=== PATIENT | female | born 1995 | race African-American/Black ===

== ENCOUNTER 2018-12-27 08:34 | Emergency (ER) | payer SELFPAY ==
--- NOTE | 2018-12-27 09:58 | ER Document Report ---
ED Medical Screen (RME) - General Chief Complaint: Pelvic Pain Stated Complaint: PELVIC PAIN Time Seen by Provider: 12/27/18 09:54 Mode of Arrival: Ambulatory Information source: Patient Notes: 23-year-old female presented to ED for complaint of pelvic pain. She states she started her period yesterday last menstrual period before that was November 30. She states she usually cramps on the first day of her period but she has had pelvic pain for the last 4 days. She states it is worse than the normal cramping that she has with her cycle. She is still having pelvic pain but no other symptoms. She is alert oriented respirations regular and unlabored speaking in full sentences walks with even steady gait. She states she does not smoke drink or do any drugs she works at a [employer] has a history of asthma and had an abdominal surgery when she was a baby due to throwing up. She states she lives with her girlfriend. I have greeted and performed a rapid initial assessment of this patient. A comprehensive ED assessment and evaluation of the patient, analysis of test results and completion of medical decision making process will be conducted by an additional ED providers. Dictation of this chart was performed using voice recognition software; therefore, there may be some unintended grammatical errors. TRAVEL OUTSIDE OF THE [place] IN LAST 30 DAYS: No - Related Data Allergies/Adverse Reactions: No Known Allergies Allergy (Verified 12/27/18 08:36) Past Medical History - Social History Chew tobacco use (# tins/day): No Drug Abuse: None Renal/ Medical History: Denies: Hx Peritoneal Dialysis Past Surgical History: Reports: Hx Abdominal Surgery - at age of 4, GERD correction. Physical Exam - Vital signs Vitals: Temp Pulse Resp BP Pulse Ox 98.3 F 105 H 22 H 135/76 H 92 12/27/18 08:40 12/27/18 08:40 12/27/18 08:40 12/27/18 08:40 12/27/18 08:40 Course - Vital Signs Vital signs: Temp Pulse Resp BP Pulse Ox 98.3 F 105 H 22 H 135/76 H 92 12/27/18 08:40 12/27/18 08:40 12/27/18 08:40 12/27/18 08:40 12/27/18 08:40
[2018-12-27 10:20] LABS: ABSOLUTE EOSINOPHILS # (AUTO) 0.7 10^3/uL (0.0-0.6); ABSOLUTE MONOCYTES (AUTO) 0.4 10^3/uL (0.1-1.4); BASOPHILS % (AUTO) 0.7 % (0-2); HEMATOCRIT 38.7 % (36.0-47.0); HEMOGLOBIN 12.6 g/dL (12.0-15.5); LYMPHOCYTES % (AUTO) 32.9 % (13-45); MEAN CORPUSCULAR HEMOGLOBIN 27.2 pg (27.0-33.4); MEAN CORPUSCULAR HGB CONC 32.5 g/dL (32.0-36.0); MEAN CORPUSCULAR VOLUME 84 fl (80-97); MONOCYTES % (AUTO) 6.3 % (3-13); PLATELET COUNT 365 10^3/uL (150-450); RED BLOOD COUNT 4.61 10^6/uL (3.72-5.28); RED CELL DISTRIBUTION WIDTH 16.3 % (11.5-14.0); SEGMENTED NEUTROPHILS % (AUTO) 48.1 % (42-78); TOTAL CELLS COUNTED % (AUTO) 100 %; WHITE BLOOD COUNT 6.2 10^3/uL (4.0-10.5)
[2018-12-27 10:33] LABS: APPEARANCE,URINE HAZY; BILIRUBIN,URINE MODERATE (NEGATIVE); COLOR,URINE YELLOW; GLUCOSE, URINE NEGATIVE (NEGATIVE); KETONES,URINE NEGATIVE (NEGATIVE); LEUKOCYTE ESTERASE,URINE NEGATIVE (NEGATIVE); NITRITE,URINE NEGATIVE (NEGATIVE); PROTEIN,URINE 100 mg/dL (NEGATIVE); URINE SPECIFIC GRAVITY 1.034
[2018-12-27 10:44] LABS: ALANINE AMINOTRANSFERASE 16 U/L (9-52); ALBUMIN 4.5 g/dL (3.5-5.0); ALKALINE PHOSPHATASE 71 U/L (38-126); ANION GAP 10 (5-19); ASPARTATE AMINO TRANSFERASE 26 U/L (14-36); BILIRUBIN,DIRECT 0.2 mg/dL (0.0-0.4); BILIRUBIN,TOTAL 0.5 mg/dL (0.2-1.3); BLOOD UREA NITROGEN 6 mg/dL (7-20); CALCIUM 9.4 mg/dL (8.4-10.2); CARBON DIOXIDE 25 mmol/L (22-30); CHLORIDE 106 mmol/L (98-107); GLUCOSE 91 mg/dL (75-110); SODIUM 141.3 mmol/L (137-145); TOTAL PROTEIN 7.7 g/dL (6.3-8.2)
--- NOTE | 2018-12-27 12:05 | RADIOLOGY REPORT (SQ) ---
EXAM DESCRIPTION: U/S NON-OB PELVIS TV W/O DOP COMPLETED DATE/TIME: 12/27/2018 11:12 am REASON FOR STUDY: pelvic pain COMPARISON: None. TECHNIQUE: Dynamic and static grayscale images acquired of the pelvis via transvaginal approach and recorded on PACS. Additional selected color Doppler and spectral images recorded. LIMITATIONS: None. FINDINGS: UTERUS: Contour normal. No mass. ENDOMETRIAL STRIPE: No focal or generalized thickening. No masses. CERVIX: No nabothian cysts. RIGHT OVARY AND DOPPLER: Normal size. No worrisome masses. Normal arterial vascular flow without evid ence for torsion. LEFT OVARY AND DOPPLER: Normal size. No worrisome masses. Normal arterial vascular flow without evide nce for torsion. FREE FLUID: None noted. OTHER: No other significant finding. MEASUREMENTS: UTERUS: 8.2 cm ENDOMETRIAL STRIPE: 4.9 mm RIGHT OVARY: 3.3 cm LEFT OVARY: 4.2 cm IMPRESSION: NORMAL TRANSVAGINAL PELVIC ULTRASOUND. TECHNICAL DOCUMENTATION: JOB ID: [id number] [employer]- All Rights Reserved Reading location - IP/workstation name: [email or web address]
[2018-12-27] MEDS ORDERED: KETOROLAC TROMETHAMINE 60 MG/2 ML SDV IM ONE (12:14)
[2018-12-27] MEDS ORDERED: ALBUTEROL SULFATE HFA (90 MCG/PUFF) 8 GM MDI (1 MDI/ER DISP) IH ONE (12:15)
--- NOTE | 2018-12-27 13:34 | ER Document Report ---
ED General - General Chief Complaint: Pelvic Pain Stated Complaint: PELVIC PAIN Time Seen by Provider: 12/27/18 09:54 Primary Care Provider: ABI ALEX MD [Primary Care Provider] - Follow up as needed Mode of Arrival: Ambulatory TRAVEL OUTSIDE OF THE [place] IN LAST 30 DAYS: No - HPI Notes: Patient is a 23-year-old female who presents to the emergency department for evaluation. Her initial complaint is for pelvic pain. States is been going on for the last 3 days. She states it feels like cramping but stronger than normal. She did start her period a few days early. She is sexually active, denies any history of STDs. She does see a unishear operator regularly. Has regular pelvic exams. She is had no vaginal discharge, no vaginal lesions. She denies any dysuria, hematuria, urinary frequency. Patient also states she feels short of breath. She has a history of asthma. She states that her allergies seem to exacerbate her asthma. She is not currently on any histamines. She ran out of her albuterol inhaler last night. No fevers or chills. No chest pain. - Related Data Allergies/Adverse Reactions: No Known Allergies Allergy (Verified 12/27/18 08:36) Past Medical History - General Information source: Patient - Social History Smoking Status: Never Smoker Chew tobacco use (# tins/day): No Drug Abuse: None Family History: Reviewed & Not Pertinent Patient has suicidal ideation: No Patient has homicidal ideation: No Renal/ Medical History: Denies: Hx Peritoneal Dialysis Past Surgical History: Reports: Hx Abdominal Surgery - at age of 4, GERD correction. Review of Systems - Review of Systems Constitutional: No symptoms reported EENT: No symptoms reported Cardiovascular: No symptoms reported Respiratory: See HPI Gastrointestinal: No symptoms reported Genitourinary: No symptoms reported Female Genitourinary: No symptoms reported Musculoskeletal: No symptoms reported Skin: No symptoms reported Neurological/Psychological: No symptoms reported Physical Exam - Vital signs Vitals: Temp Pulse Resp BP Pulse Ox 98.3 F 105 H 22 H 135/76 H 92 12/27/18 08:40 12/27/18 08:40 12/27/18 08:40 12/27/18 08:40 12/27/18 08:40 - Notes Notes: Vital signs reviewed, please refer to chart. Head is normocephalic, atraumatic. Pupils equal round, reactive to light. Neck is supple without meningismus. Heart is regular rate and rhythm. Lungs are clear to auscultation bilaterally. Abdomen is soft, nontender, normoactive bowel sounds throughout. Extremities without cyanosis, clubbing. Posterior calves are nontender. Peripheral pulses are equal. Skin is warm and dry. Patient is awake, alert, neurological exam is nonfocal. Course - Re-evaluation Re-evalutation: 12/27/18 13:31 Patient presents emergency department for evaluation. Laboratory investigations and imaging is ordered through triage. These failed to reveal any significant abnormality. She does have some blood in her urine, but this is secondary to menstruation. She has no urinary symptoms. She gets regular pelvic exams and has no real discharge. Her ultrasound was normal. She was given an dose of her albuterol inhaler here. I will go ahead and send her home with that as well. I will also write a prescription strength antihistamine. She is advised that this might help her control her asthma better. She states that during "allergy season" her asthma is always worsened. She is not currently wheezing, I do not see any indication for steroids at this time. We will have her follow-up with primary care and gynecology. She is to return to the ED with worsening or new concerning symptoms of any sort. - Vital Signs Vital signs: Temp Pulse Resp BP Pulse Ox 98.8 F 97 28 H 106/72 100 12/27/18 11:50 12/27/18 11:50 12/27/18 11:50 12/27/18 11:50 12/27/18 11:50 - Laboratory Result Diagrams: 12/27/18 10:10 12/27/18 10:10 Laboratory results interpreted by me: 12/27/18 12/27/18 12/27/18 10:10 10:10 10:10 RDW 16.3 H Eosinophils % 12.0 H Absolute Eosinophils 0.7 H BUN 6 L Urine Protein 100 H Urine Blood LARGE H Urine Bilirubin MODERATE H Urine Urobilinogen 2.0 H - Diagnostic Test Radiology reviewed: Reports reviewed Radiology results interpreted by me: 12/27/18 13:32 Transvaginal US 12/27/18 09:55 IMPRESSION: NORMAL TRANSVAGINAL PELVIC ULTRASOUND. Transvaginal US 12/27/18 09:55 IMPRESSION: NORMAL TRANSVAGINAL PELVIC ULTRASOUND. Discharge - Discharge Clinical Impression: Pelvic pain Asthma Qualifiers: Asthma severity: mild Asthma persistence: intermittent Asthma complication type: uncomplicated Qualified Code(s): J45.20 - Mild intermittent asthma, uncomplicated Condition: Stable Disposition: HOME, SELF-CARE Instructions: Asthma ([facility]), Pelvic Pain ([facility]) Additional Instructions: Start antihistamine as prescribed. Use albuterol inhaler at home as needed. Follow-up with your primary care physician as well as your unishear operator in the next week. Return to the emergency department with worsening or new concerning symptoms. Referrals: ABI ALEX MD [Primary Care Provider] - Follow up as needed
[2018-12-27 13:58] VITALS: BP 126/84
== END 2018-12-27 13:58 | disposition home or self-care (01) ==
LOC: ER 08:34
DX: R10.2 Pelvic and perineal pain (principal); J45.20 Mild intermittent asthma, uncomplicated; R06.02 Shortness of breath
CPT/HCPCS: 99284; 96372; 86900; 86901; 36415; 84703; 85025; 80053; 81001; 76830; J1885; J3490

== ENCOUNTER 2019-01-28 14:51 | Emergency (ER) | payer SELFPAY ==
[2019-01-28 14:55] VITALS: BP 111/75
--- NOTE | 2019-01-28 15:19 | ER Document Report ---
HPI - HPI Time Seen by Provider: 01/28/19 15:06 Pain Level: 1 Context: Patient is a 22-year-old female who presents the emergency department with a chief complaint of a cough and runny nose. Patient has a history of asthma and seasonal allergies. She states that she took a puff of her rescue inhaler and had some relief. Patient is supposed to be using cetirizine, Flonase, and Qvar, but has not been using them. She states that she does not have any of them and does not know the last time she was at her primary care provider. Denies any fever, body aches, chills, diarrhea, or any other symptoms. - CONSTITUTIONAL Constitutional: DENIES: Fever, Chills - EENT EENT: REPORTS: Nasal Drainage-Clear. DENIES: Sore Throat, Ear Pain, Nasal Drainage-Purulent, Congestion - NEURO Neurology: DENIES: Headache - RESPIRATORY Respiratory: REPORTS: Coughing - REPRODUCTIVE Reproductive: DENIES: : - DERM Skin Color: Normal Skin Problems: None Past Medical History - Social History Smoking Status: Never Smoker Chew tobacco use (# tins/day): No Frequency of alcohol use: None Drug Abuse: None Family History: Reviewed & Not Pertinent Patient has suicidal ideation: No Patient has homicidal ideation: No Pulmonary Medical History: Reports: Hx Asthma Renal/ Medical History: Denies: Hx Peritoneal Dialysis Past Surgical History: Reports: Hx Abdominal Surgery - at age of 4, GERD correction. Vertical Provider Document - CONSTITUTIONAL Agree With Documented VS: Yes Exam Limitations: No Limitations General Appearance: No Apparent Distress - INFECTION CONTROL TRAVEL OUTSIDE OF THE [place] IN LAST 30 DAYS: No - HEENT HEENT: Atraumatic - NECK Neck: Normal Inspection - RESPIRATORY Respiratory: Breath Sounds Normal, No Respiratory Distress - CARDIOVASCULAR Cardiovascular: Regular Rate, Regular Rhythm Pulses: Normal: Radial - MUSCULOSKELETAL/EXTREMETIES Musculoskeletal/Extremeties: FROM - NEURO Level of Consciousness: Awake, Alert, Appropriate - DERM Integumentary: Warm, Dry, No Rash Course - Re-evaluation Re-evalutation: 01/28/19 15:16 I have a very low suspicion for pneumonia or any life-threatening etiology at this time. She has not been on her medications. I will refill her cetirizine and albuterol inhaler. I will have her follow-up with her OB and primary care provider to have her Flonase and Qvar refilled. Patient will follow-up with her primary care provider in regards to this visit. Follow-up precautions were given. Verbal discharge instructions were given to the patient. They verbalized understanding. They are stable for discharge. - Vital Signs Vital signs: Temp Pulse Resp BP Pulse Ox 98 F 104 H 18 111/75 97 01/28/19 14:53 01/28/19 14:53 01/28/19 14:53 01/28/19 14:53 01/28/19 14:53 Discharge - Discharge Clinical Impression: Cough, History of asthma, History of seasonal allergies Condition: Stable Disposition: HOME, SELF-CARE Additional Instructions: You were seen today in the emergency department for a cough. Your cetirizine and rescue inhaler are being refilled. Please follow-up with your primary care provider tomorrow. Prescriptions: Albuterol Sulfate [Proair HFA Inhalation Aerosol 8.5 gm MDI] 2 puff IH Q4H PRN #1 mdi PRN Reason: Cetirizine HCl [All Day Allergy] 10 mg PO DAILY #30 tablet Referrals: ABI ALEX MD [Primary Care Provider] - Follow up tomorrow
== END 2019-01-28 15:23 | disposition home or self-care (01) ==
LOC: ER 14:51
DX: R05 Cough (principal); J45.909 Unspecified asthma, uncomplicated
CPT/HCPCS: 99283

== ENCOUNTER 2019-02-07 21:59 | Emergency (ER) | payer SELFPAY ==
[2019-02-07 22:16] VITALS: BP 125/82
== END 2019-02-07 23:20 | disposition left against medical advice (07) ==
LOC: ER 21:59
DX: Z53.21 Procedure and treatment not carried out due to patient leaving prior to being seen by health care provider (principal)

== ENCOUNTER 2019-02-10 07:30 | Emergency (ER) | payer MEDICAID ==
--- NOTE | 2019-02-10 08:20 | ER Document Report ---
HPI - HPI Patient complains to provider of: abdominal pain in Time Seen by Provider: 02/10/19 08:13 Onset/Duration: Gradual, Intermittent Quality of pain: Cramping Severity: Mild Pain Level: 2 Context: 23 yr old female patient, with the listed pmh, here for intermittent crampy lower abdominal pain x 28 days. She is , last menstrual period 12/26/2018. No complications in previous . She has her initial REVIEW APPRAISER appointment with [facility] in [place] in 4 days. She has not had a confirmed IUP in this . She states her pain is worse when she is standing at work all day and she needs a work note. No abdominal surgeries other than remote pyloromyotomy as a baby. No history of ovarian cysts, fibroids, endometriosis, or renal stones. Normal bowel movements. No UTI symptoms other than some intermittent frequency. No URI symptoms. No recent antibiotics or steroids. No history of diabetes or asthma. No vaginal discharge/complaints/bleeding/lesions or concerns for STDs and does not want a pelvic exam. Hasn't taken anything for her symptoms and does not want anything for them. No excessive NSAID use, Tylenol use, or EtOH. No prior history of gallbladder disease, pancreatitis, ulcers, GI bleed, GERD, IBS, Crohn's, or UC. no change in color or caliber or stool. no blood thinners. no fall or trauma. Pain is not worse with eating, movement, or deep breathing. No other associated sx. Exacerbated by: Standing Relieved by: Remaining still Similar symptoms previously: Yes Recently seen / treated by doctor: No - ROS Systems Reviewed and Negative: Yes All other systems reviewed and negative - To include 10 systems, unless mentioned in the hpi. - REPRODUCTIVE LMP: 12/26/18 Reproductive: REPORTS: : - DERM Skin Color: Normal Past Medical History - General Information source: Patient - Social History Smoking Status: Never Smoker Chew tobacco use (# tins/day): No Frequency of alcohol use: None Drug Abuse: None Family History: Reviewed & Not Pertinent Patient has suicidal ideation: No Patient has homicidal ideation: No Pulmonary Medical History: Reports: Hx Asthma Endocrine Medical History: Reports: None Renal/ Medical History: Denies: Hx Peritoneal Dialysis Past Surgical History: Reports: Hx Abdominal Surgery - pyloromyotomy as a baby- no complications since - Immunizations Immunizations up to date: Yes Vertical Provider Document - CONSTITUTIONAL Agree With Documented VS: Yes Exam Limitations: No Limitations General Appearance: No Apparent Distress Notes: >>>> PHYSICAL_EXAM: GENERAL_APPEARANCE: well_nourished, alert, cooperative, no_acute_distress, no_obvious_discomfort. Pleasant, young black female, smiling, speaking in full sentences, in no sign of pain or resp distress, easily sitting up, 7mth old in the room with her. she isn't breast feeding. VITALS: reviewed, see vital signs table. HEAD: normocephalic, atraumatic. no crooks signs. no raccoon eyes. EYES: PERRL, EOMI, (-)scleral icterus. NOSE: no_nasal_discharge. MOUTH: (-)decreased moisture. THROAT: no_tonsilar_inflammation/hypertrophy/exudate NECK: supple, no_neck_tenderness, full rom. full strength. no meningeal signs. BACK: no midline_back_tenderness. no step offs or deformities CHEST_WALL: no_chest_tenderness. LUNGS: no_wheezing, (-)accessory muscle use, good air exchange bilateral. HEART: normal_rate, normal_rhythm, ABDOMEN: normal_BS, soft, abdomen-diffuse, non-tender, uterus not palpated on exam, (-)guarding, (-)rebound, no distension or peritoneal signs. neg murphys. neg mcburneys. no cva tenderness. neg heel strike. neg obturator. neg psoas. neg rovsign. PELVIC: deferred by pt. RECTAL: deferred EXTREMITIES: strength 5/5 in all_extremities, good pulses in all_extremities, no_edema, no_swelling\tenderness. full rom. normal gait. 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 brisk cap refill. SKIN: warm, dry, good_color, no_rash. no grossly visible overlying skin changes to suggest trauma NEURO: motor_intact, sensory_intact. MENTAL_STATUS: normal_affect, speech_clear, oriented_X_3, responds_ appropriately to questions. - INFECTION CONTROL TRAVEL OUTSIDE OF THE [place] IN LAST 30 DAYS: No Course - Re-evaluation Re-evalutation: 02/10/19 08:19 pt here for intermittent lower abdominal cramping for the last month. She has not had a confirmed IUP. Last menstrual period was 12/26/2018. Labs were unremarkable other than a possible uti, since she is will tx with keflex. she is blood type A+. ucx, gc/chlam pending. advised will call with any abnormal results that require change in plan of care. she didn't want prophylactic gc/chlam tx. She denies any vaginal discharge or bleeding or concerns for STDs and did not want a pelvic exam. OB transvag US showed a living IUP at 7w 4d, with fht at 141bpm, and was otherwise neg for anything acute per rad and reviewed by myself. pt informed of her findings. She has no abdominal tenderness to palpation on exam. She is tolerating p.o. She is well-appearing. Advised to continue vitamins. Pelvic rest. No heavy lifting. Tylenol for any pain. f/u with the obgyn for further std testing and workup of her sx and repeat of quant level in 2 days. Advised to f/u with obgyn in 1-2 days. return for any worsening symptoms. vss. well appearing. satting well on ra. neurononfocal. pt understands and agrees to plan. On reexam, pt remained stable. nontoxic. well appearing. pain controlled. tolerating po. requesting to go home. serial abd exams remain benign Documentation achieved through voice recording which my lead to some occasional accidental typographical errors. Extensive efforts have been made to proof read documentation to make sure these are the least as possible. 02/10/19 09:48 Category Date Time Status U/S OB TRANSVAG W/DOPPLER [US] Stat Exams 02/10/19 08:23 Taken CBC WITH DIFF [HEME] Stat Lab 02/10/19 08:05 Completed CHLAM MARTI PCR URINE INHOUSE [MO] Stat Lab 02/10/19 09:15 Ordered COMPREHENSIVE METABOLIC PANEL [CHEM] Stat Lab 02/10/19 08:05 Completed HCG QUANTITATIVE [CHEM] Stat Lab 02/10/19 08:05 Completed LIPASE [CHEM] Stat Lab 02/10/19 08:05 Completed TYPE AND SCREEN [BBK] Stat Lab 02/10/19 08:35 Completed URINALYSIS [URIN] Stat Lab 02/10/19 08:35 Completed URINE CULTURE [MC] Stat Lab 02/10/19 08:35 Received 08/22/19 09:53 - Vital Signs Vital signs: Temp Pulse Resp BP Pulse Ox 97.9 F 89 18 128/58 H 98 02/10/19 07:33 02/10/19 07:33 02/10/19 07:33 02/10/19 07:33 02/10/19 07:33 Temp Pulse Resp BP Pulse Ox 02/10/19 11:52 98.7 F 85 16 118/71 100 02/10/19 07:33 97.9 F 89 18 128/58 H 98 - Laboratory Result Diagrams: 02/10/19 08:05 02/10/19 08:05 Laboratory results interpreted by me: Labs- Entire Visit 02/10/19 02/10/19 02/10/19 08:05 08:05 08:05 WBC 8.0 RBC 4.41 Hgb 12.3 Hct 37.2 MCV 84 MCH 27.9 MCHC 33.1 RDW 17.6 H Plt Count 463 H Lymph % (Auto) 25.6 Pepin % (Auto) 6.4 Eos % (Auto) 6.6 H Baso % (Auto) 0.7 Absolute Neuts (auto) 4.9 Absolute Lymphs (auto) 2.1 Absolute Monos (auto) 0.5 Absolute Eos (auto) 0.5 Absolute Basos (auto) 0.1 Seg Neutrophils % 60.7 Sodium 137.2 Potassium 3.7 Chloride 103 Carbon Dioxide 25 Anion Gap 9 BUN 5 L Creatinine 0.49 L Est GFR ( Amer) > 60 Est GFR (MDRD) Non-Af > 60 Glucose 71 L Calcium 9.7 Total Bilirubin 0.5 Direct Bilirubin 0.2 Neonat Total Bilirubin Not Reportable Neonat Direct Bilirubin Not Reportable Neonat Indirect Bili Not Reportable AST 19 ALT 12 Alkaline Phosphatase 65 Total Protein 7.0 Albumin 4.2 Lipase 70.6 Beta HCG, Quant 106281.00 H Total Beta HCG POSITIVE Urine Color Urine Appearance Urine pH Ur Specific [place] Urine Protein Urine Glucose (UA) Urine Ketones Urine Blood Urine Nitrite Urine Bilirubin Urine Urobilinogen Ur Leukocyte Esterase Urine WBC (Auto) Urine RBC (Auto) Urine Bacteria (Auto) Squamous Epi Cells Auto Urine Mucus (Auto) Urine Ascorbic Acid Chlamydia DNA (PCR) N.gonorrhoeae DNA (PCR) Blood Type Antibody Screen 02/10/19 02/10/1919 08:35 08:35 09:40 WBC RBC Hgb Hct MCV MCH MCHC RDW Plt Count Lymph % (Auto) Pepin % (Auto) Eos % (Auto) Baso % (Auto) Absolute Neuts (auto) Absolute Lymphs (auto) Absolute Monos (auto) Absolute Eos (auto) Absolute Basos (auto) Seg Neutrophils % Sodium Potassium Chloride Carbon Dioxide Anion Gap BUN Creatinine Est GFR ( Amer) Est GFR (MDRD) Non-Af Glucose Calcium Total Bilirubin Direct Bilirubin Neonat Total Bilirubin Neonat Direct Bilirubin Neonat Indirect Bili AST ALT Alkaline Phosphatase Total Protein Albumin Lipase Beta HCG, Quant Total Beta HCG Urine Color YELLOW Urine Appearance CLOUDY Urine pH 6.0 Ur Specific [place] 1.021 Urine Protein 30 H Urine Glucose (UA) NEGATIVE Urine Ketones NEGATIVE Urine Blood NEGATIVE Urine Nitrite NEGATIVE Urine Bilirubin NEGATIVE Urine Urobilinogen 4.0 H Ur Leukocyte Esterase LARGE H Urine WBC (Auto) 10 Urine RBC (Auto) 3 Urine Bacteria (Auto) 2+ Squamous Epi Cells Auto 32 Urine Mucus (Auto) MANY Urine Ascorbic Acid NEGATIVE Chlamydia DNA (PCR) NOT DETECTED N.gonorrhoeae DNA (PCR) NOT DETECTED Blood Type A POSITIVE Antibody Screen NEGATIVE - Diagnostic Test Radiology reviewed: Image reviewed, Reports reviewed Radiology results interpreted by me: Transvaginal US 02/10/19 08:23 IMPRESSION: LIVING INTRAUTERINE . EGA 7 weeks 4 days Trimester of : First trimester - 0 to 13 weeks. Discharge - Discharge Clinical Impression: Threatened Abdominal pain during Qualifiers: Trimester: first trimester Qualified Code(s): O26.891 - Other specified related conditions, first trimester; R10.9 - Unspecified abdominal pain UTI (urinary tract infection) Qualifiers: Urinary tract infection type: acute cystitis Hematuria presence: without hematuria Qualified Code(s): N30.00 - Acute cystitis without hematuria Condition: Good Disposition: HOME, SELF-CARE Instructions: Cephalexin ([facility]), Threatened Abortions ( Patients), Urin edyta Tract Infection ([facility]) Additional Instructions: Follow-up with obgyn in 1 to 2 days. Return for any worsening symptoms. take the medication as prescribed. We will call you with any abnormal results that require change in plan of care. Drink plenty of fluids. vitamins. Pelvic rest. No heavy lifting. Tylenol as needed for any pain. Follow-up with your REVIEW APPRAISER in 2 days for repeat hormone level as discussed and further work-up. Prescriptions: Cephalexin Monohydrate [Keflex 500 mg Capsule] 500 mg PO BID 7 Days #14 capsule Forms: Return to Work Referrals: HARJINDER HARDY MD [Primary Care Provider] - Follow up tomorrow
[2019-02-10 08:36] LABS: ABSOLUTE BASOPHILS # (AUTO) 0.1 10^3/uL (0.0-0.2); ABSOLUTE EOSINOPHILS # (AUTO) 0.5 10^3/uL (0.0-0.6); ABSOLUTE LYMPHOCYTES (AUTO) 2.1 10^3/uL (0.5-4.7); ABSOLUTE MONOCYTES (AUTO) 0.5 10^3/uL (0.1-1.4); ABSOLUTE NEUT (AUTO) 4.9 10^3/uL (1.7-8.2); BASOPHILS % (AUTO) 0.7 % (0-2); EOSINOPHILS % (AUTO) 6.6 % (0-6); HEMATOCRIT 37.2 % (36.0-47.0); HEMOGLOBIN 12.3 g/dL (12.0-15.5); LYMPHOCYTES % (AUTO) 25.6 % (13-45); MEAN CORPUSCULAR HEMOGLOBIN 27.9 pg (27.0-33.4); MEAN CORPUSCULAR HGB CONC 33.1 g/dL (32.0-36.0); MEAN CORPUSCULAR VOLUME 84 fl (80-97); MONOCYTES % (AUTO) 6.4 % (3-13); PLATELET COUNT 463 10^3/uL (150-450); RED BLOOD COUNT 4.41 10^6/uL (3.72-5.28); RED CELL DISTRIBUTION WIDTH 17.6 % (11.5-14.0); SEGMENTED NEUTROPHILS % (AUTO) 60.7 % (42-78); TOTAL CELLS COUNTED % (AUTO) 100 %
[2019-02-10 08:40] LABS: ALBUMIN 4.2 g/dL (3.5-5.0); ALKALINE PHOSPHATASE 65 U/L (38-126); ANION GAP 9 (5-19); ASPARTATE AMINO TRANSFERASE 19 U/L (14-36); BILIRUBIN,DIRECT 0.2 mg/dL (0.0-0.4); BILIRUBIN,TOTAL 0.5 mg/dL (0.2-1.3); BLOOD UREA NITROGEN 5 mg/dL (7-20); CALCIUM 9.7 mg/dL (8.4-10.2); CARBON DIOXIDE 25 mmol/L (22-30); CHLORIDE 103 mmol/L (98-107); GLUCOSE 71 mg/dL (75-110); POTASSIUM 3.7 mmol/L (3.6-5.0)
[2019-02-10 08:56] LABS: APPEARANCE,URINE CLOUDY; BILIRUBIN,URINE NEGATIVE (NEGATIVE); GLUCOSE, URINE NEGATIVE (NEGATIVE); KETONES,URINE NEGATIVE (NEGATIVE); LEUKOCYTE ESTERASE,URINE LARGE (NEGATIVE); NITRITE,URINE NEGATIVE (NEGATIVE); PROTEIN,URINE 30 mg/dL (NEGATIVE); URINE SPECIFIC GRAVITY 1.021
[2019-02-10 08:57] LABS: COLOR,URINE YELLOW
--- NOTE | 2019-02-10 10:47 | RADIOLOGY REPORT (SQ) ---
EXAM DESCRIPTION: U/S OB TRANSVAG W/DOPPLER COMPLETED DATE/TIME: 02/10/2019 10:18 am REASON FOR STUDY: abd pain in preg COMPARISON: None. TECHNIQUE: Transvaginal static and realtime grayscale images acquired of the pelvis. Additional iraida cted spectral and color Doppler images recorded. All images stored on PACs. [facility] CLINICAL DATES: 6 weeks 4 days LIMITATIONS: None. FINDINGS: FETUS: Single Living intrauterine . ULTRASOUND EGA: 7 weeks 4 days ULTRASOUND ALEX: 09/25/2019 EFW: Not applicable less than 20 weeks. CRL: 1.3 cm FHR: 141 beats per minute. SURVEY: Too early to assess. AMNIOTIC FLUID: Adequate amount. PLACENTA: Not yet developed due to early gestation. SUBCHORIONIC BLEED: No SIZE OF BLEED: Not applicable. UTERUS: No masses. No anomalies. CERVICAL LENGTH: 2.4 cm Closed. RIGHT ADNEXA: Normal ovary with normal vascular flow. No adnexal free fluid. No adnexal masses. LEFT ADNEXA: Normal ovary with normal vascular flow. No adnexal free fluid. 2.5 cm corpus luteum. FREE FLUID: None. OTHER: No other significant finding. IMPRESSION: LIVING INTRAUTERINE . EGA 7 weeks 4 days Trimester of : First trimester - 0 to 13 weeks. TECHNICAL DOCUMENTATION: JOB ID: [id number] [employer]- All Rights Reserved rev Reading location - IP/workstation name: [email or web address]
[2019-02-10 11:33] LABS: CHLAM PCR NOT DETECTED (NOT DETECT)
[2019-02-10 11:57] VITALS: BP 118/71
== END 2019-02-10 11:58 | disposition home or self-care (01) ==
LOC: ER 07:30
DX: O23.41 Unspecified infection of urinary tract in pregnancy, first trimester (principal); O20.0 Threatened abortion; O26.891 Other specified pregnancy related conditions, first trimester; R10.30 Lower abdominal pain, unspecified; Z3A.01 Less than 8 weeks gestation of pregnancy; O99.511 Diseases of the respiratory system complicating pregnancy, first trimester; J45.909 Unspecified asthma, uncomplicated
CPT/HCPCS: 36415; 76817; 80053; 81001; 83690; 84702; 85025; 86850; 86900; 86901; 87086; 87491; 87591; 93976; 99284

== ENCOUNTER 2019-04-18 09:37 | Emergency (ER) | payer MEDICAID ==
[2019-04-18 09:45] VITALS: BP 118/65
[2019-04-18] MEDS ORDERED: IPRATROPIUM/ALBUTEROL 0.5-2.5 MG/3 ML AMPUL NEB ONE (09:55)
[2019-04-18] MEDS ORDERED: PREDNISONE 20 MG TABLET PO ONE (09:55)
--- NOTE | 2019-04-18 09:56 | ER Document Report ---
HPI - HPI Patient complains to provider of: asthma Time Seen by Provider: 04/18/19 09:51 Onset: Last week Onset/Duration: Worse Pain Level: Denies Context: Patient presents complaining of flareup of her asthma. Patient states she is run out of her inhaler. Patient denies any fever. Patient denies any chest pain. Associated Symptoms: Nonproductive cough. denies: Chest pain, Fever, Nausea, Vomiting Exacerbated by: Denies Relieved by: Denies Similar symptoms previously: Yes Recently seen / treated by doctor: No - ROS ROS below otherwise negative: Yes Systems Reviewed and Negative: Yes All other systems reviewed and negative - CONSTITUTIONAL Constitutional: DENIES: Fever, Chills - EENT EENT: DENIES: Sore Throat, Ear Pain, Congestion - CARDIOVASCULAR Cardiovascular: DENIES: Chest pain - RESPIRATORY Respiratory: REPORTS: Coughing - GASTROINTESTINAL Gastrointestinal: DENIES: Abdominal Pain, Nausea - URINARY Urinary: DENIES: Dysuria - REPRODUCTIVE Reproductive: REPORTS: : - MUSCULOSKELETAL Musculoskeletal: DENIES: Back Pain - DERM Skin Color: Normal Skin Problems: None Past Medical History - General Information source: Patient - Social History Smoking Status: Never Smoker Frequency of alcohol use: None Drug Abuse: None 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 IN LAST 30 DAYS: No - HEENT HEENT: Atraumatic, Normocephalic. negative: Pharyngeal Exudate, Pharyngeal Tenderness, Pharyngeal Erythema, Tympanic Membrane Red, Tympanic Membrane Bulging Notes: Clear rhinorrhea - NECK Neck: Normal Inspection, Supple. negative: Lymphadenopathy-Left, Lymph adenopathy-Right - RESPIRATORY Respiratory: No Respiratory Distress, Chest Non-Tender, Wheezing - CARDIOVASCULAR Cardiovascular: Regular Rhythm, No Murmur, Tachycardia - GI/ABDOMEN Gastrointestinal: Abdomen Soft - BACK Back: Normal Inspection - MUSCULOSKELETAL/EXTREMETIES Musculoskeletal/Extremeties: MAEW - NEURO Level of Consciousness: Awake, Alert, Appropriate Motor/Sensory: No Motor Deficit - DERM Integumentary: Warm, Dry, No Rash Course - Re-evaluation Re-evalutation: 04/18/19 10:43 Decreased wheezing bilaterally with increased air movement. Patient nontoxic in appearance. Discussed worsening symptoms that patient should return immediately for. Patient verbalized understanding agrees with plan of care. - Vital Signs Vital signs: Temp Pulse Resp BP Pulse Ox 97.7 F 108 H 16 118/65 97 04/18/19 09:44 04/18/19 09:44 04/18/19 09:44 04/18/19 09:44 04/18/19 09:44 Discharge - Discharge Clinical Impression: Asthma exacerbation Qualifiers: Asthma severity: unspecified severity Asthma persistence: unspecified Qualified Code(s): J45.901 - Unspecified asthma with (acute) exacerbation Disposition: HOME, SELF-CARE Instructions: Asthma ([facility]), Inhaled Bronchodilators ([facility]), Steroid Medication Additional Instructions: Return immediately for any new or worsening symptoms Followup with your primary care provider, call tomorrow to make a followup appointment Prescriptions: Prednisone [Deltasone 10 mg Tablet] 10 mg PO ASDIR PRN #21 tablet PRN Reason: Inhaler,Assist Device,Accesory [Optichamber] 1 each MC Q4 PRN #1 each PRN Reason: Albuterol Sulfate [Proair Hfa Inhalation Aerosol 8.5 gm Mdi] 2 puff IH Q4 PRN #1 mdi PRN Reason: Forms: Return to Work Referrals: HARJINDER HARDY MD [ACTIVE STAFF] - Follow up as needed
== END 2019-04-18 10:40 | disposition home or self-care (01) ==
LOC: ER 09:37
DX: O99.519 Diseases of the respiratory system complicating pregnancy, unspecified trimester (principal); J45.901 Unspecified asthma with (acute) exacerbation; J34.89 Other specified disorders of nose and nasal sinuses; O26.899 Other specified pregnancy related conditions, unspecified trimester; R05 Cough; Z3A.00 Weeks of gestation of pregnancy not specified
CPT/HCPCS: J7512; J7620; 94640; 99284

== ENCOUNTER 2019-04-27 13:14 | Emergency (ER) | payer MEDICAID ==
--- NOTE | 2019-04-27 14:12 | ER Document Report ---
ED Medical Screen (RME) - General Chief Complaint: Abdominal Pain Stated Complaint: ABDOMINAL PAIN/HEADACHES Time Seen by Provider: 04/27/19 14:09 Mode of Arrival: Ambulatory Information source: Patient Notes: Patient presents 17 weeks complaining of lower abdominal pain for the past week. Patient denies any fever nausea vomiting diarrhea or urinary symptoms. Patient denies any vaginal bleeding or discharge. I have greeted and performed a rapid initial assessment of this patient. A comprehensive ED assessment and evaluation of the patient, analysis of test results and completion of the medical decision making process will be conducted by additional ED providers. TRAVEL OUTSIDE OF THE [place] IN LAST 30 DAYS: No - Related Data Allergies/Adverse Reactions: No Known Allergies Allergy (Verified 02/10/19 07:31) Past Medical History Pulmonary Medical History: Reports: Hx Asthma Renal/ Medical History: Denies: Hx Peritoneal Dialysis Past Surgical History: Reports: Hx Abdominal Surgery - pyloromyotomy as a baby-n o complications since - Immunizations Immunizations up to date: Yes Physical Exam - Vital signs Vitals: Temp Pulse Resp BP Pulse Ox 97.8 F 95 16 110/59 L 99 04/27/19 13:44 04/27/19 13:44 04/27/19 13:44 04/27/19 13:44 04/27/19 13:44 - Abdominal Tenderness: Tender - Lower pelvic tenderness Course - Vital Signs Vital signs: Temp Pulse Resp BP Pulse Ox 97.8 F 95 16 110/59 L 99 04/27/19 13:44 04/27/19 13:44 04/27/19 13:44 04/27/19 13:44 04/27/19 13:44
[2019-04-27 14:43] LABS: ABSOLUTE BASOPHILS # (AUTO) 0.1 10^3/uL (0.0-0.2); ABSOLUTE EOSINOPHILS # (AUTO) 0.5 10^3/uL (0.0-0.6); ABSOLUTE LYMPHOCYTES (AUTO) 2.2 10^3/uL (0.5-4.7); ABSOLUTE MONOCYTES (AUTO) 0.6 10^3/uL (0.1-1.4); ABSOLUTE NEUT (AUTO) 3.8 10^3/uL (1.7-8.2); BASOPHILS % (AUTO) 1.4 % (0-2); EOSINOPHILS % (AUTO) 7.1 % (0-6); HEMATOCRIT 33.2 % (36.0-47.0); HEMOGLOBIN 11.3 g/dL (12.0-15.5); LYMPHOCYTES % (AUTO) 30.4 % (13-45); MEAN CORPUSCULAR HEMOGLOBIN 30.3 pg (27.0-33.4); MEAN CORPUSCULAR VOLUME 89 fl (80-97); MONOCYTES % (AUTO) 8.4 % (3-13); PLATELET COUNT 370 10^3/uL (150-450); RED BLOOD COUNT 3.72 10^6/uL (3.72-5.28); RED CELL DISTRIBUTION WIDTH 15.1 % (11.5-14.0); SEGMENTED NEUTROPHILS % (AUTO) 52.7 % (42-78); TOTAL CELLS COUNTED % (AUTO) 100 %; WHITE BLOOD COUNT 7.3 10^3/uL (4.0-10.5)
[2019-04-27 14:50] LABS: APPEARANCE,URINE SLIGHTLY-CLOUDY; BILIRUBIN,URINE NEGATIVE (NEGATIVE); COLOR,URINE YELLOW; GLUCOSE, URINE NEGATIVE (NEGATIVE); KETONES,URINE TRACE mg/dL (NEGATIVE); PROTEIN,URINE 30 mg/dL (NEGATIVE); URINE SPECIFIC GRAVITY 1.029
[2019-04-27 15:15] LABS: ALBUMIN 3.7 g/dL (3.5-5.0); ALKALINE PHOSPHATASE 47 U/L (38-126); ANION GAP 10 (5-19); ASPARTATE AMINO TRANSFERASE 16 U/L (14-36); BILIRUBIN,DIRECT 0.1 mg/dL (0.0-0.4); BILIRUBIN,TOTAL 0.3 mg/dL (0.2-1.3); BLOOD UREA NITROGEN 6 mg/dL (7-20); CALCIUM 9.5 mg/dL (8.4-10.2); CARBON DIOXIDE 23 mmol/L (22-30); CHLORIDE 105 mmol/L (98-107); GLUCOSE 72 mg/dL (75-110); TOTAL PROTEIN 6.7 g/dL (6.3-8.2)
--- NOTE | 2019-04-27 16:00 | RADIOLOGY REPORT (SQ) ---
EXAM DESCRIPTION: U/S OB LIMITED COMPLETED DATE/TIME: 04/27/2019 3:37 pm REASON FOR STUDY: lower pelvic pain COMPARISON: None. TECHNIQUE: Limited transabdominal grayscale ultrasound for evaluation of specific requested obstetri [place] parameters. LIMITATIONS: None. FINDINGS: CERVICAL LENGTH: 3.3 cm. Closed. SHEILA: Clear, adequate in volume. FHR: 135 beats per minute. PRESENTATION: Breech. PLACENTA: Anterior location grade 1 ANATOMY: Not assessed OTHER: No other significant findings. IMPRESSION: LIMITED OBSTETRICAL ULTRASOUND WITH MEASURED PARAMETERS DELINEATED ABOVE. Trimester of : Second trimester - 13 weeks 1 day to 27 weeks 6 days. TECHNICAL DOCUMENTATION: JOB ID: [id number] [employer]- All Rights Reserved Reading location - IP/workstation name: [email or web address]
[2019-04-27 16:16] LABS: CHLAM PCR NOT DETECTED (NOT DETECT)
--- NOTE | 2019-04-27 17:13 | ER Document Report ---
HPI - HPI Patient complains to provider of: pelvic pain Time Seen by Provider: 04/27/19 14:09 Onset: Last week Onset/Duration: Waxing and waning Quality of pain: Achy Pain Level: Denies Context: Patient presents with a lower pelvic pain off and on for the past week. Patient states she only has pain when she has at work lifting objects above her head. Patient states that whenever she is not doing this activity she has no pain. Patient denies any injury. Patient denies any nausea vomiting or diarrhea. No urinary symptoms. Patient denies any vaginal bleeding or discharge. Patient is currently 17 weeks G2, P1. Associated Symptoms: denies: Diarrhea, Fever Exacerbated by: Denies Relieved by: Denies Similar symptoms previously: No Recently seen / treated by doctor: No - ROS ROS below otherwise negative: Yes Systems Reviewed and Negative: Yes All other systems reviewed and negative - CONSTITUTIONAL Constitutional: DENIES: Fever, Chills - NEURO Neurology: DENIES: Headache, Weakness - RESPIRATORY Respiratory: DENIES: Trouble Breathing, Coughing - GASTROINTESTINAL Gastrointestinal: REPORTS: Abdominal Pain. DENIES: Nausea, Patient vomiting, Diarrhea, Black / Bloody Stools - URINARY Urinary: DENIES: Dysuria, Urgency, Frequency - REPRODUCTIVE Reproductive: REPORTS: :. 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 IN LAST 30 DAYS: No - HEENT HEENT: Atraumatic, Normocephalic - NECK Neck: Normal Inspection, Supple. negative: Lymphadenopathy-Left, Lymphadenopathy-Right - RESPIRATORY Respiratory: Breath Sounds Normal, No Respiratory Distress - CARDIOVASCULAR Cardiovascular: Regular Rate, Regular Rhythm - GI/ABDOMEN Gastrointestinal: Abdomen Soft, Abdomen Non-Tender, No Organomegaly, Normal Bowel Sounds - BACK Back: Normal Inspection. negative: CVA Tenderness-Right, CVA Tenderness-Left - MUSCULOSKELETAL/EXTREMETIES Musculoskeletal/Extremeties: SHARONA MELISSA - NEURO Level of Consciousness: Awake, Alert, Appropriate Motor/Sensory: No Motor Deficit - DERM Integumentary: Warm, Dry, No Rash Course - Re-evaluation Re-evalutation: 04/27/19 17:22 Patient's abdomen soft nontender. Patient without any acute findings on diagnostic evaluation. Patient reports pain only when she is at work lifting objects above her head. 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 No concern for appendicitis, pyelonephritis or any intra-abdominal acute process at this time. - Vital Signs Vital signs: Temp Pulse Resp BP Pulse Ox 97.8 F 95 16 110/59 L 99 04/27/19 13:44 04/27/19 13:44 04/27/19 13:44 04/27/19 13:44 04/27/19 13:44 - Laboratory Result Diagrams: 04/27/19 14:20 04/27/19 14:20 Laboratory results interpreted by me: 04/27/19 04/27/19 04/27/19 14:20 14:20 14:20 Hgb 11.3 L Hct 33.2 L RDW 15.1 H Eos % (Auto) 7.1 H BUN 6 L Creatinine 0.46 L Glucose 72 L Urine Protein 30 H Urine Ketones TRACE H Urine Urobilinogen 2.0 H Urine Ascorbic Acid 40 H 04/27/19 17:10 Labs- Entire Visit 04/27/19 04/27/19 04/27/19 14:20 14:20 14:20 WBC 7.3 RBC 3.72 Hgb 11.3 L Hct 33.2 L MCV 89 MCH 30.3 MCHC 34.0 RDW 15.1 H Plt Count 370 Lymph % (Auto) 30.4 [place] % (Auto) 8.4 Eos % (Auto) 7.1 H Baso % (Auto) 1.4 Absolute Neuts (auto) 3.8 Absolute Lymphs (auto) 2.2 Absolute Monos (auto) 0.6 Absolute Eos (auto) 0.5 Absolute Basos (auto) 0.1 Seg Neutrophils % 52.7 Sodium 138.0 Potassium 4.0 Chloride 105 Carbon Dioxide 23 Anion Gap 10 BUN 6 L Creatinine 0.46 L Est GFR ( Amer) > 60 Est GFR (MDRD) Non-Af > 60 Glucose 72 L Calcium 9.5 Total Bilirubin 0.3 Direct Bilirubin 0.1 Neonat Total Bilirubin Not Reportable Neonat Direct Bilirubin Not Reportable Neonat Indirect Bili Not Reportable AST 16 ALT 8 Alkaline Phosphatase 47 Total Protein 6.7 Albumin 3.7 Urine Color Urine Appearance Urine pH Ur Specific [place] Urine Protein Urine Glucose (UA) Urine Ketones Urine Blood Urine Nitrite (Reflex) Urine Bilirubin Urine Urobilinogen Leukocyte Esterase Rfl Urine RBC (Auto) U Hyaline Cast (Auto) Urine Bacteria (Auto) Urine WBC (Reflex) Squamous Epi Cells Auto Urine Mucus (Auto) Urine Ascorbic Acid Chlamydia DNA (PCR) NOT DETECTED N.gonorrhoeae DNA (PCR) NOT DETECTED 04/27/19 14:20 WBC RBC Hgb Hct MCV MCH MCHC RDW Plt Count Lymph % (Auto) [place] % (Auto) Eos % (Auto) Baso % (Auto) Absolute Neuts (auto) Absolute Lymphs (auto) Absolute Monos (auto) Absolute Eos (auto) Absolute Basos (auto) Seg Neutrophils % Sodium Potassium Chloride Carbon Dioxide Anion Gap BUN Creatinine Est GFR ( Amer) Est GFR (MDRD) Non-Af Glucose Calcium Total Bilirubin Direct Bilirubin Neonat Total Bilirubin Neonat Direct Bilirubin Neonat Indirect Bili AST ALT Alkaline Phosphatase Total Protein Albumin Urine Color YELLOW Urine Appearance SLIGHTLY-CLOUDY Urine pH 5.0 Ur Specific [place] 1.029 Urine Protein 30 H Urine Glucose (UA) NEGATIVE Urine Ketones TRACE H Urine Blood NEGATIVE Urine Nitrite (Reflex) NEGATIVE Urine Bilirubin NEGATIVE Urine Urobilinogen 2.0 H Leukocyte Esterase Rfl NEGATIVE Urine RBC (Auto) 1 U Hyaline Cast (Auto) 2 Urine Bacteria (Auto) TRACE Urine WBC (Reflex) 1 Squamous Epi Cells Auto 4 Urine Mucus (Auto) MANY Urine Ascorbic Acid 40 H Chlamydia DNA (PCR) N.gonorrhoeae DNA (PCR) - Diagnostic Test Radiology reviewed: Reports reviewed Discharge - Discharge Clinical Impression: Intrauterine , resolved pelvic pain Condition: Stable Disposition: HOME, SELF-CARE Instructions: Acetaminophen, Pelvic Pain in and Round Ligament Pain ([facility]) Additional Instructions: Return immediately for any new or worsening symptoms Followup with your [employer] care provider, call tomorrow to make a followup appointment Avoid heavy lifting Forms: Return to Work Referrals: [facility] [Provider Group] - Follow up as needed
[2019-04-27 17:20] VITALS: BP 123/74
== END 2019-04-27 17:20 | disposition home or self-care (01) ==
LOC: ER 13:14
DX: O26.92 Pregnancy related conditions, unspecified, second trimester (principal); R10.2 Pelvic and perineal pain; Z3A.17 17 weeks gestation of pregnancy
CPT/HCPCS: 36415; 76815; 80053; 81001; 85025; 87491; 87591; 99284

== ENCOUNTER 2019-05-13 07:09 | Emergency (ER) | payer MEDICAID ==
[2019-05-13 08:09] LABS: APPEARANCE,URINE CLEAR; BILIRUBIN,URINE NEGATIVE (NEGATIVE); COLOR,URINE YELLOW; GLUCOSE, URINE 50 mg/dL (NEGATIVE); KETONES,URINE NEGATIVE (NEGATIVE); LEUKOCYTE ESTERASE,URINE TRACE (NEGATIVE); NITRITE,URINE NEGATIVE (NEGATIVE); PROTEIN,URINE NEGATIVE (NEGATIVE); URINE SPECIFIC GRAVITY 1.017
--- NOTE | 2019-05-13 08:23 | ER Document Report ---
ED General - General Chief Complaint: Vaginal Itching Stated Complaint: PELVIC PAIN Time Seen by Provider: 05/13/19 08:19 TRAVEL OUTSIDE OF THE [place] IN LAST 30 DAYS: No - HPI Notes: 23-year-old female to the emergency department with complaints of vaginal itching for the past 2 to 3 days. She states that she is about 19 weeks and is followed at [facility]. She states that she has not had any lower abdominal pain or vaginal bleeding. She states that she has not seen a vaginal discharge. She states that she does not typically have any bacterial vaginosis or yeast problems. She denies concern for STDs. She denies any urinary complaints. She denies any chest pain, shortness of breath, fevers, chills, abdominal pain, back pain. - Related Data Allergies/Adverse Reactions: No Known Allergies Allergy (Verified 05/13/19 07:11) Past Medical History - General Information source: Patient - Social History Smoking Status: Never Smoker Frequency of alcohol use: None Drug Abuse: None Family History: Reviewed & Not Pertinent Patient has suicidal ideation: No Patient has homicidal ideation: No Pulmonary Medical History: Reports: Hx Asthma Renal/ Medical History: Denies: Hx Peritoneal Dialysis Past Surgical History: Reports: Hx Abdominal Surgery - pyloromyotomy as a baby- no complications since - Immunizations Immunizations up to date: Yes Review of Systems - Review of Systems Constitutional: denies: Chills, Fever EENT: No symptoms reported Cardiovascular: denies: Chest pain, Palpitations Respiratory: denies: Cough, Short of breath Gastrointestinal: denies: Abdominal pain, Diarrhea, Nausea, Vomiting Genitourinary: denies: Discharge, Frequency, Flank pain, Hematuria, Incontinence Female Genitourinary: , Other - Vaginal itching. denies: Vaginal discharge, Vaginal bleeding, Vaginal odor, Painful intercourse Musculoskeletal: No symptoms reported Skin: denies: Rash Neurological/Psychological: No symptoms reported -: Yes All other systems reviewed and negative Physical Exam - Vital signs Vitals: Temp Pulse Resp BP Pulse Ox 98.2 F 97 17 114/61 100 05/13/19 07:14 05/13/19 07:14 05/13/19 07:14 05/13/19 07:14 05/13/19 07:14 Interpretation: Normal - General General appearance: Appears well, Alert In distress: None - HEENT Head: Normocephalic, Atraumatic Eyes: Normal Pupils: PERRL - Respiratory Respiratory status: No respiratory distress Chest status: Nontender Breath sounds: Normal Chest palpation: Normal - Cardiovascular Rhythm: Regular Heart sounds: Normal auscultation Murmur: No - Abdominal Inspection: Normal Distension: Other - Gravid abdomen, fundus is just below the umbilicusfetal heart tones are reassuring at 143 Bowel sounds: Normal Tenderness: Nontender. No: McBurney's point, Mills's sign, Guarding, Rebound Organomegaly: No organomegaly - Back Back: Normal, Nontender. 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 Sensory: Normal - Psychological Associated symptoms: Normal affect, Normal mood - Skin Skin Temperature: Warm Skin Moisture: Dry Skin Color: Normal Course - Re-evaluation Re-evalutation: 05/13/19 Laboratory 05/13/19 05/13/19 07:58 09:09 Urine Color YELLOW Urine Appearance CLEAR Urine pH 8.0 Ur Specific [place] 1.017 Urine Protein NEGATIVE Urine Glucose (UA) 50 H Urine Ketones NEGATIVE Urine Blood NEGATIVE Urine Nitrite NEGATIVE Urine Bilirubin NEGATIVE Urine Urobilinogen 2.0 H Ur Leukocyte Esterase TRACE H Urine WBC (Auto) 1 Urine RBC (Auto) 0 Squamous Epi Cells Auto 3 Urine Mucus (Auto) RARE Urine Ascorbic Acid NEGATIVE Epi Cells (Wet Prep) 3+ EPITHELIALS SEEN Bacteria (Wet Prep) 4+ BACTERIA SEEN Trichomonas (Wet Prep) NO TRICHOMONAS SEEN Vaginal WBC 4+ WBCS SEEN Vaginal RBC RARE RBCS SEEN Vaginal Yeast YEAST SEEN Impression: Vaginal itching, vaginal yeast infection, BV. We will go ahead and start treatment. We will give clotrimazole vaginal inserts and Flagyl. Discussed pack category with patient about Flagyl. We will have her follow-up with [facility]. Encouraged to return if she has any worsening symptoms or any concerns. Patient agrees with the plan. - Vital Signs Vital signs: Temp Pulse Resp BP Pulse Ox 98.4 F 99 18 114/68 100 05/13/19 09:50 05/13/19 09:50 05/13/19 09:50 05/13/19 09:50 05/13/19 09:50 - Laboratory Laboratory results interpreted by me: 05/13/19 07:58 Urine Glucose (UA) 50 H Urine Urobilinogen 2.0 H Ur Leukocyte Esterase TRACE H Discharge - Discharge Clinical Impression: Vaginal itching, , Bacterial vaginosis in , Vaginal yeast infection, Medication refill Condition: Stable Disposition: HOME, SELF-CARE Instructions: Vaginal Yeast Infection ([facility]), Vaginosis, Bacterial ([facility]) Additional Instructions: FOLLOW UP WITH OB IN THE NEXT WEEK. RETURN IF ANY WORSENING SYMPTOMS. COMPLETE ANTIBIOTICS AND USE VAGINAL INSERT DIRECTED. Prescriptions: Clotrimazole [3-Day Vaginal Cream] 1 appful VG DAILY #7 cream.appl Albuterol Sulfate [Albuterol Sulfate Hfa] 2 puff IH Q4H PRN #1 hfa.aer.ad PRN Reason: Metronidazole [Flagyl 500 mg Tablet] 500 mg PO BID #14 tablet Forms: Return to Work
[2019-05-13] MEDS ORDERED: ALBUTEROL SULFATE HFA (90 MCG/PUFF) 8 GM MDI (1 MDI/ER DISP) IH ONE (08:27)
[2019-05-13 09:26] LABS: BACTERIA (WET MOUNT) 4+ BACTERIA SEEN; EPITHELIALS (WET MOUNT) 3+ EPITHELIALS SEEN; RBCS (WET MOUNT) RARE RBCS SEEN; T.VAGINALIS (WET MOUNT) NO TRICHOMONAS SEEN; WBCS (WET MOUNT) 4+ WBCS SEEN; YEAST (WET MOUNT) YEAST SEEN
[2019-05-13 09:52] VITALS: BP 114/68
[2019-05-13 10:54] LABS: CHLAM PCR NOT DETECTED (NOT DETECT)
== END 2019-05-13 09:50 | disposition home or self-care (01) ==
LOC: ER 07:09
DX: O23.599 Infection of other part of genital tract in pregnancy, unspecified trimester (principal); O98.819 Other maternal infectious and parasitic diseases complicating pregnancy, unspecified trimester; B37.3 Candidiasis of vulva and vagina; B96.89 Other specified bacterial agents as the cause of diseases classified elsewhere; O99.519 Diseases of the respiratory system complicating pregnancy, unspecified trimester; J45.909 Unspecified asthma, uncomplicated; Z76.0 Encounter for issue of repeat prescription; Z3A.00 Weeks of gestation of pregnancy not specified
CPT/HCPCS: 99284; 87210; 81001; 87491; 87591; J3490

== ENCOUNTER 2019-05-16 15:25 | Outpatient (CLI) | payer MEDICAID ==
[2019-05-16 16:33] LABS: APPEARANCE,URINE CLOUDY; BILIRUBIN,URINE NEGATIVE (NEGATIVE); CALCIUM OXALATE CRYSTALS,URINE MODERATE /HPF; COLOR,URINE AMBER; GLUCOSE, URINE NEGATIVE (NEGATIVE); KETONES,URINE TRACE mg/dL (NEGATIVE); LEUKOCYTE ESTERASE,URINE MODERATE (NEGATIVE); NITRITE,URINE NEGATIVE (NEGATIVE); PROTEIN,URINE 30 mg/dL (NEGATIVE); URINE SPECIFIC GRAVITY 1.036; UROBILINOGEN,URINE NEGATIVE mg/dL (<2.0)
[2019-05-16 16:48] LABS: URINE AMPHETAMINES SCREEN NEGATIVE; URINE BARBITURATES SCREEN NEGATIVE; URINE BENZODIAZEPINES SCREEN NEGATIVE; URINE MARIJUANA (THC) SCREEN NEGATIVE; URINE METHADONE SCREEN NEGATIVE; URINE PHENCYCLIDINE SCREEN NEGATIVE
== END 2019-05-16 16:14 | disposition home or self-care (01) ==
LOC: LC 15:25
PROVIDERS: ATTEND Obstetrics & Gynecology
DX: O98.312 Other infections with a predominantly sexual mode of transmission complicating pregnancy, second trimester (principal); A60.00 Herpesviral infection of urogenital system, unspecified; Z3A.21 21 weeks gestation of pregnancy
CPT/HCPCS: 36415; 81001; 80307; 80353; G0480

== ENCOUNTER 2019-05-27 18:09 | Emergency (ER) | payer OTHER, MEDICAID ==
[2019-05-27] MEDS ORDERED: DIPH/PERTUSS(ACELL)/TETANUS VAC/PF 0.5 ML SYR (>=10YO) IM ONE (19:10)
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
--- NOTE | 2019-05-27 19:34 | RADIOLOGY REPORT (SQ) ---
EXAM DESCRIPTION: CHEST 2 VIEWS COMPLETED DATE/TIME: 05/27/2019 7:19 pm REASON FOR STUDY: right chest wall pain COMPARISON: None. EXAM PARAMETERS: NUMBER OF VIEWS: two views TECHNIQUE: Digital Frontal and Lateral radiographic views of the chest acquired. RADIATION DOSE: NA LIMITATIONS: none FINDINGS: LUNGS AND PLEURA: No opacities, masses or pneumothorax. No pleural effusion. MEDIASTINUM AND HILAR STRUCTURES: No masses or contour abnormalities. HEART AND VASCULAR STRUCTURES: Heart normal size. No evidence for failure. BONES: No acute findings. HARDWARE: None in the chest. OTHER: No other significant finding. IMPRESSION: NO ACUTE RADIOGRAPHIC FINDING IN THE CHEST. TECHNICAL DOCUMENTATION: JOB ID: [id number] [employer]- All Rights Reserved Reading location - IP/workstation name: [email or web address]
[2019-05-27 20:27] VITALS: BP 123/74
== END 2019-05-27 21:20 | disposition home or self-care (01) ==
LOC: ER 18:09
DX: O26.92 Pregnancy related conditions, unspecified, second trimester (principal); S00.531A Contusion of lip, initial encounter; S20.211A Contusion of right front wall of thorax, initial encounter; S00.81XA Abrasion of other part of head, initial encounter; V43.52XA Car driver injured in collision with other type car in traffic accident, initial encounter; Z3A.21 21 weeks gestation of pregnancy; Z23 Encounter for immunization; R07.89 Other chest pain
CPT/HCPCS: 71046; 90471; 90715; 99283